=== PATIENT | female | born 1940 | race Caucasian/White ===

== ENCOUNTER 2018-01-06 09:55 | Inpatient (IN) | payer MEDICARE ==
[~2018-01-06] VITALS: Ht 165.1 cm; Wt 103.4 kg
--- NOTE | ~2018-01-06 | H ---
[address] [address] HISTORY AND PHYSICAL Name: YESENIA STOKES Room: [address]#: [id number] Admission: 01/07/18 Attend Phys: Parker Burt MD Discharge: 01/08/18 Date of : 40 Report #: [id number] THIS REPORT FOR: //name// For History and Physical please refer to the handwritten note in the patient's medical record. By: [facility] Staff J LUIS /OSBALDO
[2018-01-06 10:09] VITALS: BP 135/99
[2018-01-06] MEDS ORDERED: XANAX1 MG PO (10:19)
[2018-01-06] MEDS ORDERED: MELATONIN5 M1 PO (10:20)
[2018-01-06] MEDS ORDERED: TEMAZEPAM30 MG PO (10:20)
[2018-01-06] MEDS ORDERED: PROAIR HFA8.5 GM (12:13)
[2018-01-06] MEDS ORDERED: FLONASE 0.05%50 MCG NASAL (12:13)
[2018-01-06] MEDS ORDERED: SYMBICORT160 MCG/4. INH (12:13)
[2018-01-06] MEDS ORDERED: SYNTHROID88 MCG PO (12:14)
[2018-01-06] MEDS ORDERED: CLEOCIN HCL150 MG PO (12:14)
[2018-01-06] MEDS ORDERED: OMEPRAZOLE40 MG PO (12:14)
[2018-01-06] MEDS ORDERED: CYMBALTA30 MG PO (12:15)
[2018-01-06] MEDS ORDERED: ALL DAY ALLERGY10 M3 PO (12:15)
[2018-01-06] MEDS ORDERED: FIORINAL CAPSUL1 CA1 PO (12:16)
[2018-01-06] MEDS ORDERED: MAGOX 400400 MG PO (12:16)
[2018-01-06] MEDS ORDERED: UNICOMPLEX M TA1 TA1 PO (12:16)
[2018-01-06] MEDS ORDERED: VITAMIN B-1100 M1 PO (12:17)
[2018-01-06] MEDS ORDERED: VITAMIN D3400 UNIT PO (12:17)
[2018-01-06] MEDS ORDERED: CALCIUM 500 +1 EAC5 PO (12:17)
[2018-01-06 12:33] LABS: ABSOLUTE BASOPHILS 0.1 thou/uL (0.0-0.2); ABSOLUTE EOSINOPHILS 0.2 thou/uL (0.0-0.7); ABSOLUTE LYMPHOCYTES 1.5 thou/uL (0.8-5.3); ABSOLUTE MONOCYTES 0.6 thou/uL (0.0-1.2); ABSOLUTE NEUTROPHILS 4.3 thou/uL (1.6-8.1); BASOPHILS 1.4 %; EOSINOPHILS 3.2 %; HEMATOCRIT 41.8 % (37.0-47.0); LYMPHOCYTES 22.3 %; MCH 30.5 pg (26.0-34.0); MCHC 33.4 g/dL (28.0-37.0); MCV 91.4 fL (80.0-100.0); MONOCYTES 9.1 %; NUCLEATED RBCS 0 /100WBC; PLATELET COUNT* 317 thou/uL (150-400); RBC 4.57 mil/uL (4.20-5.00); RDW-CV 14.8 % (10.5-14.5); WBC 6.8 thou/uL (4.0-11.0)
[2018-01-06 12:41] LABS: CALCIUM 9.5 mg/dL (8.5-10.1); CREATININE 0.8 mg/dL (0.6-1.3); POTASSIUM 4.4 mmol/L (3.5-5.1)
[2018-01-06 12:45] LABS: ALBUMIN 3.2 g/dL (3.4-5.0); TOTAL BILIRUBIN 0.3 mg/dL (<0.1-1.0); TOTAL PROTEIN 7.1 g/dL (6.4-8.2)
[2018-01-06 12:48] VITALS: BP 128/66
--- NOTE | 2018-01-06 16:42 | EKG ---
[place] [address] ELECTROCARDIOGRAM REPORT Name: YESENIA STOKES Room: [facility]#: [id number] Admission: 01/06/18 Attend Phys: Discharge: 01/06/18 Date of : 40 Report #: [id number] THIS REPORT FOR: //name// [facility] ED Test Date: 2018-01-06 Test Time: 12:39:13 Pat Name: YESENIA STOKES Department: Room: Gender: F Building Surveyor: [place] : 1940 Requested By: Jaden Odonnell Order Number: [id number] MD: Myles Hills Measurements Intervals [place] Rate: 82 P: 32 RI: 151 QRS: -45 QRSD: 138 T: 4 QT: 394 QTc: 461 Interpretive Statements Sinus rhythm Right bundle branch block Inferior infarct, old No previous ECG available for comparison Electronically Signed On 01-06-2018 16:42:28 CDT by Myles Hills [email or web address] <ELECTRONICALLY SIGNED> By: Myles Hills MD, [facility] 01/06/18 1642 1239 1239 Myles Hills MD, FACC /EPI
[2018-01-06 18:15] VITALS: BP 133/80
--- NOTE | 2018-01-06 21:33 | NUR ---
PT ARRIVED UNEXPECTEDLY FROM PACU AT 1804. PT CAME INTO E.D. WITH BROKEN WRIST, WENT TO SURGERY AND WAS TO BE RELEASED HOME, BUT WAS INSTEAD BROUGHT TO [facility] FOR 23 HOUR WATCH WITH PLAN TO D/C HOME TOMORROW. PT SETTLED INTO ROOM, EDUCATED ON ROOM AND HOSPITAL. FOOD, WATER AND ROOM SET UP PROVIDED. BED IN LOW LOCKED POSITION, FALL PRECAUTIONS IN PLACE AND FALL RISKS SIGNED AND PLACED IN CHART. VSS ON RA. HOURLY ROUNDING COMPLETED. LCTAB, HRRR PER AUSCULTATION. LEFT WRIST WRAPPED/SPLINTED. PT DENIES PAIN AT SHIFT CHANGE. REPORT TO ANTENNA DESIGN ENGINEER FOR CONTINUED CARES. PT SMILING, TALKATIVE AND PLEASANT.
[2018-01-07 00:19] VITALS: BP 119/77
[2018-01-07 04:33] VITALS: BP 135/66
--- NOTE | 2018-01-07 05:03 | NUR ---
PATIENT ALERT AND ORIENTED X 4 THROUGHOUT THE SHIFT AND RESTING QUIETLY ON HOURLY ROUNDS. UP TO BR WITH ADEQUATE VOIDS POET-OP. DRESSING/SPLINT LEFT WRIST CLEAN AND DRY. LUE ELEVATED ON PILLOW WITH ICE PACK. MEDICATED FOR PAIN TO GOOD EFFECT. VITAL SIGNS STABLE. HAS TOLERATED DIET. PATIENT HAS VERBALIZED SOME CONCERN RETURNING HOME TO SELF CARE. MESSAGE TO CM. CONTINUE TO MONITOR.
[2018-01-07 09:05] VITALS: BP 122/62
--- NOTE | 2018-01-07 11:30 | NUR ---
ASSUMED CARES OF PT AT 0700. PT IN BED, BED IN LOW LOCKED POSITION. CALL BUTTON AND PERSONAL ITEMS IN PT REACH. FALL PRECAUTIONS IN PLACE, BED ALARM ACTIVE. PT A&O X4, COMPLIANT, COOPERATIVE, FRIENDLY, TALKATIVE. HRRR PER AUSCULTATION, LCTAB, VSS ON RA, AFEBRILE, PERRLA, SKIN INTACT. LEFT WRIST FRACTURE WRAPPED AND SPLINTED. PT USES SLING OCCASIONALLY NEEDED/WANTED. PAIN CONTROLLED WITH MEDS FOR LEFT WRIST FRACTURE. PT UP SBA TO BATHROOM. LEFT FOOT IV 22 GAUGE PATENT TO FLUSH/SALINE LOCKED. HR OCC. TACHYCARDIC, PT HR STAYS IN 90'S TO LOWER 100'S. HOURLY ROUNDING CONTINUES. WILL CONTINUE TO MONITOR PT PROGRESS, STATUS AND PAIN. MAY D/C HOME TOMORROW.
--- NOTE | 2018-01-07 12:00 | NUR ---
PT.UP IN CHAIR AFTER P.T. READY FOR LUNCH. HELPED HER UNWRAP ITEMS ON HER TRAY. SHE LIVES ALONE. SHE SAID HER KIDS NEVER COME SEE HER OR DO ANYTHING FOR HER. SHE IS INDEPENDENT. STILL DRIVES. SHE SAID HER FRIENDS WILL HELP HER. DISCUSSED HH. SAID SHE DIDN'T HAVE ANY MONEY TO PAY FOR HOME HEALTH. EXPLAINED MEDICARE PAYS FOR FOR HH. SHE WOULD BE AGREEABLE TO OT. SHE CHOSE [facility]. SHE USES A CANE EVERY ONCE IN AWHILE. DISCUSSED MEALS ON WHEELS. SHE SAID SHE COULD NOT AFFORD THEM. MEALS [employer] WHEELS WILL NOT EXPECT PT.TO PAY FOR MEAL IF SHE CANNOT AFFORD MEAL. SHE DECLINED. SHE HAS SOMEONE THAT CAN TAKE HER HOME AND STOP TO GET HER PRESCRIPTIONS FILLED. SHE WAS UNDER THE IMPRESSION SHE WAS NOT GOING HOME UNTIL TOMORROW. EXPLAINED SHE WAS AN OBSERVTION PT.AND I WOULD CHECK WITH NURSING. PT.SAID SHE WOULD LIKE A SLING FOR HER ARM.
[2018-01-07 15:11] VITALS: BP 148/73
[2018-01-07 16:24] VITALS: BP 148/73
--- NOTE | 2018-01-07 20:30 | NUR ---
BEDSIDE REPORT TO FAMILY READINESS SUPPORT ASSISTANT FOR CONTINUED CARES. ASSESSMENTS AND HOURLY ROUNDING COMPLETED. PT IN BED, FALL PRECAUTIONS REMAIN IN PLACE, CALL BUTTON IN PT REACH. PT LEFT WRIST FX PAIN DIFFICULT TO MANAGE, PT STATES THIS IS WORSE THAN HER SHOULDER SURGERY. PT TEARY, TRAMADOL NOT EFFECTIVE FOR RELIEF. PT CHANGED TO INPATIENT STATUS FOR PAIN CONTROL. ICE APPLIED, LEFT ARM RAISED ON PILLOWS. CAP REFILL <3 SEC. HAND WARM TO TOUCH.
[2018-01-07 21:30] VITALS: BP 170/84
[2018-01-08 00:37] VITALS: BP 151/77
--- NOTE | 2018-01-08 08:08 | NUR ---
ALERT AND ORIENTED X4. GIVEN IV MORPHINE (WHICH PATIENT STATED SHE HAD TAKEN BEFORE) BUT AFTER GIVING MORPHINE PATIENT STATED ABOVE HER IV SITE ON HER FOOT ITCHED. NO REDNESS,OR RASH NOTED AT SITE. NO C/O SOA. PATIENT PUT SCRATCHES ON LEG FROM ITCHING. LOTION APPLIED TO AREA AND PATIENT STATED IT FELT BETTER. PO PAIN MEDICATION GIVEN THE REST OF THE NIGHT AND HELPFUL. LEFT FINGERS PUFFY BUT ARE WARM AND HAVE GOOD CAPILLARY REFILL. LEFT ARM/HAND ELEVATED ON PILLOW. PATIENT REFUSED ICE WHEN OFFERED. SPLINT/CAST/MACKENZIE WRAP REMAINS INTACT ON LEFT ARM. CALL LIGHT WITHIN REACH.
--- NOTE | 2018-01-08 14:57 | NUR ---
CM SPOKE TO THE PATIENT TO DISCUSS DISCHARGE PLANNING NEEDS, AND ANY QUESTIONS OR CONCERNS THAT SHE MAY HAVE. PATIENT STATES THAT HER ONLY CONCERN IS IF SHE WILL HAVE HH AT D/C. CM INFORMED PATIENT THAT CM HAS SENT REFERRAL AND WILL SEND D/C ORDERS. [facility] WILL CONTACT THE PATIENT TO SET-UP VISIT. CM SPOKE TO DELILAH AT [facility] TO INFORM OF THE PATIENTS DISCHARGE AND FAXED THE PATIENTS D/C ORDERS. CM WILL REMAIN AVAILABLE TO ASSIST AND FOLLOW NEEDED.
[2018-01-08 15:02] VITALS: BP 148/73
[2018-01-08] MEDS ORDERED: TRAMADOL 50 MG50 MG PO (15:24)
[2018-01-08 15:31] VITALS: BP 148/73
[2018-01-08 16:40] VITALS: BP 148/73
--- NOTE | 2018-01-08 20:45 | NUR ---
I ASSUMED CARE OF THE PATIENT AT 0700. SHE IS ALERT AND ORIENTED X4, BUT SEEMS DEPRESSED. BED IS IN THE LOW LOCKED POSITION AND CALL LIGHT IS IN REACH. HOURLY ROUNDING WAS COMPLETED AND PATIENT NEEDS WERE MET. PAIN IS MANAGED WITH PRN MEDS. PATIENT IS VERY CONCERNED ABOUT THE COST OF EVERYTHING. CASE MANAGEMENT SET UP HOME HEALTH FOR DISCHARGE. DR ROSE DISCHARGED PATIENT TO HOME WITH SCRIPTS. SHE WAS TAKEN WITH A FRIEND TO GET MEDS ON THE WAY HOME.
--- NOTE | 2018-01-28 11:41 | OP ---
[address] [address] OPERATIVE REPORT Name: YESENIA STOKES Room: [address] IN [facility]#: [id number] Admission: 01/07/18 Attend Phys: Parker Burt MD Discharge: 01/08/18 Date of : 40 Report #: [id number] THIS REPORT FOR: //name// CC: Jaden Burt [facility] DATE OF SERVICE: 01/06/2018 PREOPERATIVE DIAGNOSIS: Comminuted displaced left distal radial fracture. POSTOPERATIVE DIAGNOSIS: Comminuted displaced left distal radial fracture. OPERATIVE PROCEDURE PERFORMED: Open reduction and internal fixation of fracture of the left distal radius. DESCRIPTION OF PROCEDURE: Under general anesthesia, the patient was placed onto the operating room table in the supine position. A routine prep and drape was performed of the left hand and arm. The procedure was performed under tourniquet ischemia. Bleeding was controlled throughout the procedure by electrocautery. The wound was irrigated every 20 minutes with bacitracin solution. Following the appropriate time-out procedure, a 3 inch skin incision was made over the volar aspect of the left distal radius. Incision was carried through the skin, subcutaneous tissue and fascia. The quadratus muscle was then incised at its insertion over the radial border. The fracture site was exposed. Periosteal elevator was used to elevate the soft tissues from about the fracture site. The fracture was reduced into an anatomic position. A smooth K-wire was passed across the fracture site, securing the fracture in an anatomic position. A compression plate with its component screws were then applied and inserted, securing the fracture in an anatomic position. The wound was irrigated and closed with 2-0 Vicryl for the muscular, fascial and subcutaneous layers. The skin was closed with 4-0 nylon sutures. A sterile dressing was applied. A splint was applied. The patient tolerated the procedure well and was returned to the recovery area in good condition. <ELECTRONICALLY SIGNED> By: Parker Burt MD 01/28/18 1141 1608 1710John Martin Burt MD /nt
--- NOTE | 2018-01-28 11:41 | D ---
[address] [address] DISCHARGE SUMMARY Name: DIVYAYESENIA Room: [address] IN ..#: [id number] Admission: 01/07/18 Attend Phys: Parker Burt MD Discharge: 01/08/18 Date of : 40 Report #: [id number] THIS REPORT FOR: //name// CC: Jaden Burt [facility] DATE OF SERVICE: 01/08/2018 DISCHARGE DIAGNOSES: 1. Displaced comminuted left distal radial fracture. 2. History of depression. OPERATIVE PROCEDURE PERFORMED: Open reduction and internal fixation of left distal radial fracture. Pertinent historical data and positive physical findings are recorded in the history and physical examination. LABORATORY DATA: Initial laboratory data was well within normal limits. HOSPITAL COURSE: She was admitted, appropriately worked up and taken to surgery, which she tolerated well postoperatively. She progressively improved. At the time of discharge, it was felt that she had achieved maximum benefit from acute hospitalization and she was discharged to be followed as an outpatient. <ELECTRONICALLY SIGNED> By: Parker Burt MD 01/28/18 1141 1442 1844Jodarby Burt MD /nt
== END 2018-01-08 16:45 | disposition home health service (06) | DRG 512 ==
LOC: M.ERS 09:55 → M.SUR 09:55 → M.ERS 12:49 → M.ORTHSURG 18:18
PROVIDERS: Physician Assistant; ADMIT Specialist
PROC: 0PSJ04Z Reposition Left Radius with Internal Fixation Device, Open Approach (ICD-10-PCS; principal; 2018-01-08)
DX: S52.502A Unspecified fracture of the lower end of left radius, initial encounter for closed fracture (principal); W18.39XA Other fall on same level, initial encounter; F32.9 Major depressive disorder, single episode, unspecified; Z79.899 Other long term (current) drug therapy; Z88.6 Allergy status to analgesic agent; Z88.8 Allergy status to other drugs, medicaments and biological substances; Y93.89 Activity, other specified; Y92.091 Bathroom in other non-institutional residence as the place of occurrence of the external cause; Y99.8 Other external cause status

== ENCOUNTER 2018-12-31 11:18 | Inpatient (IN) | payer MEDICARE ==
[~2018-12-31] VITALS: Ht 167.6 cm; Wt 96.6 kg
[~2018-12-31 11:18] MED LIST: ALL DAY ALLERGY10 M3 PO; CALCIUM 500 +1 EAC5 PO; CLEOCIN HCL150 MG PO; CYMBALTA30 MG PO; FIORINAL CAPSUL1 CA1 PO; FLONASE 0.05%50 MCG NASAL; MAGOX 400400 MG PO; MELATONIN5 M1 PO; OMEPRAZOLE40 MG PO; PROAIR HFA8.5 GM INH; SYMBICORT160 MCG/4. INH; SYNTHROID88 MCG PO; TEMAZEPAM30 MG PO; TRAMADOL 50 MG50 MG PO; UNICOMPLEX M TA1 TA1 PO; VITAMIN B-1100 M1 PO; VITAMIN D3400 UNIT PO; XANAX1 MG PO
[2018-12-31 11:27] VITALS: BP 191/92
[2018-12-31] MEDS ORDERED: ANORO ELLIPTA1 EACH INH (11:35)
[2018-12-31] MEDS ORDERED: PAXIL10 MG PO (11:36)
[2018-12-31] MEDS ORDERED: FOSAMAX 70 MG T70 MG PO (11:37)
[2018-12-31] MEDS ORDERED: CARAFATE 1 GM TA1 G1 PO (11:38)
[2018-12-31] MEDS ORDERED: BENTYL 20 MG TA20 M1 PO (11:38)
[2018-12-31 13:20] VITALS: BP 194/103
[2018-12-31 13:37] LABS: ANION GAP 7 mmol/L (7-16); BUN 6 mg/dL (7-18); CALCIUM 8.8 mg/dL (8.5-10.1); CHLORIDE 105 mmol/L (98-107); CO2 29 mmol/L (21-32); CREATININE 0.7 mg/dL (0.6-1.3); GLUCOSE 164 mg/dL (70-99); POTASSIUM 4.2 mmol/L (3.5-5.1); SODIUM 141 mmol/L (136-145); TROPONIN-I LEVEL <0.06 ng/mL (<0.06)
[2018-12-31 13:39] LABS: ALBUMIN 3.1 g/dL (3.4-5.0); ALKALINE PHOSPHATASE 75 U/L (46-116); SGOT 40 U/L (15-37); SGPT 44 U/L (30-65); TOTAL BILIRUBIN 0.3 mg/dL (<0.1-1.0); TOTAL PROTEIN 6.7 g/dL (6.4-8.2)
[2018-12-31 13:40] LABS: BE -0.7 mmol/L (-2 to +3); PCO2 46.9 mmHg (35.0-45.0)
[2018-12-31 13:43] LABS: PO2 129.6 mmHg (75.0-100.0)
[2018-12-31 15:37] LABS: INFLUENZA A ANTIGEN None Detected (None Detect); INFLUENZA B ANTIGEN None Detected (None Detect)
[2018-12-31 16:44] VITALS: BP 132/64
--- NOTE | 2018-12-31 17:36 | NUR ---
PT REMAINED ALERT AND ORIENTED. PT IS ON 2 LITERS O2. PT HAS NONPRODUCTIVE COUGH. BP ELEVATED. NORVASC GIVEN, BP DECREASED. NO PAIN OR N/V PRESENT. PT STAND BY TO BATHROOM. FALL RISK PRECAUTIONS IN PLACE. HOURLY ROUNDING COMPLETED. WILL CONTINUE TO MONITOR.
--- NOTE | 2019-01-01 03:37 | NUR ---
ASSUMED CARE OF PT AT 1900. PT IS ALERT AND ORIENTED. VSS. PERREJI. PT IS ON 2 LITERS O2 AND HOME CPAP. PT CONTINUE TO HAVE COUGH. PT IS GETTING CODEINE FOR COUGH. PT IS SLEEPING QUIETLY IN BED. RESPIRATIONS ARE EVEN AND NONLABORED. WILL CONTINUE TO MONITOR PT.
[2019-01-01 07:10] VITALS: BP 152/80
--- NOTE | 2019-01-01 15:04 | EKG ---
[place] [address] ELECTROCARDIOGRAM REPORT Name: YESENIA STOKES Room: [address] ADM IN ..#: [id number] Admission: 12/31/18 Attend Phys: Jamie Taylor MD Discharge: Date of : 40 Report #: [id number] THIS REPORT FOR: //name// [facility] ED Test Date: 2018-12-31 Test Time: 11:42:23 Pat Name: YESENIA STOKES Department: Room: [facility] Gender: F Gis Manager: [place] : 1940 Requested By: Brigitte Angel Order Number: [id number] MD: Bob Alonso Measurements Intervals [place] Rate: 94 P: 78 NH: 155 QRS: -47 QRSD: 120 T: 30 QT: 386 QTc: 483 Interpretive Statements Sinus rhythm IVCD, consider atypical RBBB Baseline wander in lead(s) V6 Compared to ECG 01/06/2018 12:39:13 no change Electronically Signed On 01-01-2019 15:04:38 CDT by Bob Alonso [email or web address] <ELECTRONICALLY SIGNED> By: Bob Alonso MD, [facility] 01/01/19 1504 1142 1142 Bob Alonso MD, [facility] /EPI
[2019-01-01 15:38] LABS: ABSOLUTE LYMPHOCYTES 0.8 thou/uL (0.8-5.3); ABSOLUTE MONOCYTES 0.6 thou/uL (0.0-1.2); ABSOLUTE NEUTROPHILS 6.1 thou/uL (1.6-8.1); BASOPHILS 0.6 %; HEMATOCRIT 36.3 % (37.0-47.0); HEMOGLOBIN 12.2 gm/dL (12.0-15.0); LYMPHOCYTES 10.2 %; MCH 32.2 pg (26.0-34.0); MCHC 33.6 g/dL (28.0-37.0); MCV 95.8 fL (80.0-100.0); MONOCYTES 7.8 %; MPV 7.6 fl. (7.2-11.1); NUCLEATED RBCS 0 /100WBC; POLYS 81.4 %; RBC 3.79 mil/uL (4.20-5.00); RDW-CV 14.4 % (10.5-14.5); WBC 7.4 thou/uL (4.0-11.0)
[2019-01-01 15:39] LABS: PLATELET COUNT* 221 thou/uL (150-400)
[2019-01-01 15:46] LABS: CALCIUM 8.8 mg/dL (8.5-10.1); CREATININE 1.2 mg/dL (0.6-1.3); POTASSIUM 3.9 mmol/L (3.5-5.1)
--- NOTE | 2019-01-01 16:36 | NUR ---
PT REMAINED ALERT AND ORIENTED. PT HAS ANXIETY OVER SHORTNESS OF AIR, WORRIED ABOUT HAVING CANCER, ETC.. PT WAS TOLD THERE IS NO SIGN OF CANCER PER DOCTORS FINDINGS AND WORK UP. ANXIETY MEDS GIVEN ORDERED. PT GIVEN IV BENDADRYL TO HELP WITH AIRWAYS. PT GIVEN CODEINE COUGH SYRUP TO HELP WITH COUGHING. PT HAS LABS, CTA, AND VENOUS US COMPELTED. AWAITING RESULTS. FALL RISK PRECAUTIONS IN PLACE. HOURLY ROUNDING COMPLETED. WILL CONTINUE TO MONITOR.
--- NOTE | 2019-01-01 18:25 | NUR ---
LACTIC ACID 7.3, PROVIDER NOTIFIED, LABS ORDERED AT THIS TIME. WILL CONTINUE TO MONITOR.
[2019-01-01 20:30] VITALS: BP 117/58
--- NOTE | 2019-01-02 05:36 | NUR ---
PT A&O X4. SAO2 94% 2L NC. PT GIVEN PRN TYLENOL/CODEINE FOR PAIN. RELIEF NOTED ON REASSESSMENT, PT ASLEEP. MEDS GIVEN SCHEDULED. LAB CALLED IN LACTIC ACID CRITICAL VALUE OF 4.6 WHICH WAS A DECREASE FROM 7.4. DR SANCHEZ NOTIFIED VIA ANUSHKA VANN. NO NEW ORDERS GIVEN. BED IN LOW POSITION, BED ALRM ACTIVATED, CALL LIGHT WITHIN REACH. WILL CONTINUE TO MONITOR.
[2019-01-02 08:00] VITALS: BP 141/58
--- NOTE | 2019-01-02 13:59 | NUR ---
SW met with pt to complete initial assessment, introduce self, and SW role. Pt alert, oriented. Pt lives at home alone. Pt son is supportive. Pt has history of [facility] HH and history of [facility] after shoulder and knee surgeries. SW to continue to follow to assist with safe dc planning.
--- NOTE | 2019-01-02 14:14 | CON ---
[address] [address] CONSULTATION Name: YESENIA STOKES Room: [address] IN .R.#: [id number] Admission: 12/31/18 Attend Phys: Jamie Taylor MD Discharge: Date of : 40 Report #: [id number] THIS REPORT FOR: //name// CC: Jamie Taylor [facility] DATE OF SERVICE: 01/01/2019 REQUESTED BY: Dr. Manuel. INDICATION FOR CONSULTATION: Acute shortness of breath/stridor. HISTORY OF PRESENT ILLNESS: This is a 78-year-old female with past medical history as mentioned below. The patient is a lifetime nonsmoker. She has been recently diagnosed with bronchial asthma a few months ago. The patient does have significant anxiety issues as well as sleep issues. She takes a fairly large amount of medications to help her sleep at night, which include temazepam at 30 mg, in addition to 1 mg of Xanax at bedtime. The patient does use a CPAP at night. She also does have a history of severe gastroesophageal reflux disease and is on proton pump inhibitor and Carafate therapy long-term. The patient is now admitted yesterday, presentation was with acute shortness of breath. The patient is reported to have had a severe upper airway wheezing as well as bronchospasm on initial presentation. The patient since then has been treated with IV steroids as well as bronchodilators The patient overall is feeling better. She has not received racemic epinephrine. The patient has had a significantly elevated lactate level. The patient's last lactate in fact is elevated to 7.3. Note, however, that the patient's last BUN and creatinine were not elevated, in fact were on the lower side. The patient has had a mild swelling of lower extremities. She still has significant heartburn. She has disturbed sleep at night as well as sleepiness during the day. She answers to the negative for 12 questions for review of systems except as mentioned above. PAST MEDICAL HISTORY: Bronchial asthma, severe gastroesophageal reflux disease. Obstructive sleep apnea, on a CPAP at home. Severe insomnia with anxiety, shoulder replacement, knee replacement, recent dental work, gallbladder removal, bowel obstruction, diabetes. CURRENT MEDICATIONS: List in [facility] reviewed. HOME MEDICATIONS: List also in [facility] reviewed. SOCIAL HISTORY: Lifetime nonsmoker. No known history of heavy alcohol use or illegal drug use. ALLERGIES: SHE IS REPORTED TO HAVE HAD ANAPHYLAXIS WITH [place] [address] CONSULTATION Name: YESENIA STOKES Room: [address]#: [id number] Admission: 12/31/18 Attend Phys: Jamie Taylor MD Discharge: Date of : 40 Report #: [id number] had hallucinations with opiates. This, however, appears to be a side effect and not true allergies. CYCLOBENZAPRINE IS ALSO MENTIONED AN ALLERGY. PHYSICAL EXAMINATION: GENERAL: She is alert, awake and oriented, does not appear to be in any distress at this time. VITAL SIGNS: Has a pulse of 109 and a blood pressure of 152/80. She is saturating 96%. She is on 2 liters nasal cannula. She has a respiratory rate of around 20. She does appear to be anxious. She is afebrile with a temperature of 36.8. HEENT: Head is normocephalic and atraumatic. Pupils are equal and reactive. There is no throat erythema. Airway is Mallampati 3. NECK: Does not show raised JVP, asymmetry, mass or lymph nodes. CHEST: Symmetrical expansion on inspection and palpation. On auscultation, breath sounds are bilaterally equal. Minimal expiratory wheezes. I do not hear any other added sounds at this time. The patient does not have stridor or upper airway wheezing. HEART: Regular, no murmur. ABDOMEN: Soft, nontender. EXTREMITIES: Lower extremities show trace edema, no calf tenderness. SKIN: Dry and intact. NEUROLOGICAL: Moves all extremities bilaterally, equally and spontaneously with no focal deficit identified. The patient's chest x-ray from yesterday is reviewed and is unremarkable. ASSESSMENT AND PLAN: 1. Acute hypoxemic/hypercarbic respiratory failure. I feel that this is multifactorial. As per history, reported to have had significant bronchospasm as well as upper airway wheezing on initial presentation. There does appear to be a significant underlying component of anxiety as well. The patient has significant underlying reflux, which also does appear to be playing a significant role. 2. Asthma exacerbation/bronchospasm. The patient remains on nebulized bronchodilators as well as Solu-Medrol. I will continue the same and make no change at this time. The patient does have a history of diabetes and has developed significant elevation in blood glucoses as a result of administration of Solu-Medrol, may therefore require more insulin. I would defer to the Primary Service. The patient currently is on both azithromycin as well as Levaquin. Pending further evaluation, I decided to discontinue azithromycin. 3. Upper airway wheezing/stridor. This is reported on initial presentation, not present on my exam at this time. I feel this is multifactorial again. Underlying reflux appears to be contributing, as does anxiety. Primary therapy at this time is that of the underlying cause. Administration of positive airway pressure therapy will also reduce upper airway wheezing should it reoccur. The [place] [address] CONSULTATION Name: YESENIA STOKES Shad Room: [address] IN [facility].#: [id number] Admission: 12/31/18 Attend Phys: Jamie Taylor MD Discharge: Date of : 40 Report #: [id number] 4. Obstructive sleep apnea. She has a CPAP. Recommend continuing while asleep. If she develops upper airway wheezing, then I will place her on a CPAP or BiPAP during the daytime as well. 5. Gastroesophageal reflux disease. I will recommend restarting proton pump inhibitor therapy, and I ordered the same. We will also continue with Carafate. There was concern as to whether the patient may have had an allergic reaction, and therefore, the patient also is on famotidine. At this time, I continued famotidine as well. However, if the patient is better, then I would be inclined to discontinue famotidine tomorrow. We will continue with PPI as well as Carafate long-term. 6. Anxiety. I feel this is playing a significant role in the patient's complaints. She is on a large dose of temazepam as well as Xanax at bedtime. For now, I did add a small dose of Xanax during the daytime, short-term as well. She has p.r.n. Ativan on the DEC as well. The patient may benefit from psychiatric evaluation. 7. Evaluation for thromboembolic phenomena. Overall, my suspicion is low. Regardless, I will go ahead and do a D-dimer as well as venous Dopplers. I also ordered an echocardiogram. For now, I am inclined to hold off on a CTA chest. 8. Lactic acidosis. I feel that this is secondary to respiratory failure and not due to volume depletion. I will go ahead and repeat basic metabolic profile at this time. If the patient's BUN and creatinine are within the normal range, then I will be inclined to not bolus her with additional amounts of fluid as this may in fact worsen her respiratory status. The patient remains on IV fluids at 50 mL an hour. 9. Deep vein thrombosis prophylaxis. She is on Lovenox. 10. Clostridium difficile prophylaxis, we will add Florastor. Thanks for this consultation. <ELECTRONICALLY SIGNED> By: Pedro Elias MD 01/02/19 1414 1454 1059Adarleen Dias MD /nt
--- NOTE | 2019-01-02 15:40 | 2DMMODE ---
[place] [address] 2 D/M-MODE ECHOCARDIOGRAM Name: YESENIA STOKES Room: [facility] IN [facility]#: [id number] Admission: 12/31/18 Attend Phys: Jamie Taylor, Discharge: Date of : 40 Date of Service: 01/02/19 1539 Report #: [id number] THIS REPORT FOR: //name// APPROVED REPORT Study performed: 01/02/2019 11:59:04 EXAM: Comprehensive 2D, Doppler, and color-flow Echocardiogram Patient Location: In-Patient Room #: [facility] Status: routine BSA: 2.05 HR: 112 bpm BP: 141/58 mmHg Rhythm: NSR Other Information Study Quality: Good Indications Dyspnea 2D Dimensions IVSd: 10.45 (7-11mm) LVOT Diam: 19.00 (18-24mm) LVDd: 49.24 mm PWd: 8.82 (7-11mm) Ascending Ao: 32.41 (22-36mm) LVDs: 28.21 (25-40mm) Aortic Root: 32.73 mm Volumes Left Atrial Volume (Systole) LA ESV Index: 19.00 mL/m2 Aortic Valve AoV Peak Mo.: 1.78 m/s AO Peak Gr.: 12.74 mmHg LVOT Max P.87 mmHg AO Mean Gr.: 6.98 mmHg LVOT Mean P.63 mmHg LVOT Max V: 1.57 m/s AO V2 VTI: 30.79 cm LVOT Mean V: 0.99 m/s YULI (VTI): 2.48 cm2 LVOT V1 VTI: 26.98 cm Mitral Valve E/A Ratio: 0.90 MV Decel. Time: 178.96 ms MV E Max Mo.: 1.28 m/[place] [address] 2 D/M-MODE ECHOCARDIOGRAM Name: YESENIA STOKES Room: [address] [place] .R.#: [id number] Admission: 12/31/18 Attend Phys: Jamie Taylor, Discharge: Date of : 40 Date of Service: 01/02/19 1539 Report #: [id number] MV PHT: 51.90 ms MVA (PHT): 4.24 cm2 TDI E/Lateral E': 9.14 Lateral E' Mo.: 0.14 m/s Pulmonary Valve PV Peak Mo.: 1.38 m/s PV Peak Gr.: 7.58 mmHg Tricuspid Valve RAP Estimate: 5.00 mmHg TR Peak Gr.: 29.71 mmHg RVSP: 34.00 mmHg PA Pressure: 34.00 mmHg Left Ventricle The left ventricle is normal size. There is normal LV segmental wall motion. There is normal left ventricular wall thickness. Left ventricular systolic function is normal. The left ventricular ejection fraction is within the normal range. LVEF is 65-70%. Grade I - abnormal relaxation pattern. Right Ventricle The right ventricle is normal size. The right ventricular systolic function is normal. Atria The left atrium size is normal. The right atrium size is normal. Aortic Valve The aortic valve is normal in structure. No aortic regurgitation is present. There is no aortic valvular stenosis. Mitral Valve The mitral valve is normal in structure. Trace mitral regurgitation. No evidence of mitral valve stenosis. Tricuspid Valve The tricuspid valve is normal in structure. Trace tricuspid regurgitation. Mild pulmonary hypertension. Pulmonic Valve The pulmonary valve is normal in structure. There is no pulmonic [place] [address] 2 D/M-MODE ECHOCARDIOGRAM Name: YESENIA STOKES Room: [address] IN [facility]#: [id number] Admission: 12/31/18 Attend Phys: Jamie Taylor, Discharge: Date of : 40 Date of Service: 01/02/19 1539 Report #: [id number] Great Vessels The aortic root is normal in size. IVC is normal in size and collapses >50% with inspiration. Pericardium There is no pericardial effusion. <Conclusion> The left ventricle is normal size. There is normal left ventricular wall thickness. Left ventricular systolic function is normal. The left ventricular ejection fraction is within the normal range. LVEF is 65-70%. Grade I - abnormal relaxation pattern. The right ventricle is normal size. The left atrium size is normal. The aortic valve is normal in structure. The mitral valve is normal in structure. The tricuspid valve is normal in structure. IVC is normal in size and collapses >50% with inspiration. There is no pericardial effusion. There is normal LV segmental wall motion. <ELECTRONICALLY SIGNED> By: Praker Rudd MD, FACC 01/02/19 1539 1539 1539 Parker Rudd MD, FACC /INF
[2019-01-02 16:48] VITALS: BP 123/69
--- NOTE | 2019-01-02 16:52 | NUR ---
PATIENT UP TO CHAIR MULTIPLE TIMES THIS SHIFT. VIDEO SWALLOW ORDERED BY PULMONARY THIS AFTERNOON, AWAITING TO BE DONE. IV LEAKING THIS AM AND INFUSION PLACED ANOTHER IV TO LEFT FOREARM, IV AND SCHED STEROIDS GIVEN. PRN COUGH SYRUP AND PRN TYLENOL GIVEN ORDERED. REMAISN ON 2L NC. UP TO SHOWER THIS AM, PATIENT DID C/O SOA AFTER SHOWER, 02 SAT 94% RA.
[2019-01-02 21:00] VITALS: BP 127/70
--- NOTE | 2019-01-03 04:57 | NUR ---
PT ALERT AND ORIENTED. PREFERS TO TAKE PO MEDS RIGHT AT BEDTIME, SLEPT THROUGH THE NIGHT. VITAL SIGNS STABLE THROUGH SHIFT, ON 2L NC. PT STANDBY ASSIST, CALLS OUT APPROPRIATELY. CALL LIGHT WITHIN REACH. BED IN LOW POSITION. FALL RISK PRECAUTION IN PLACE. WILL CONTINUR TO MONITOR.
[2019-01-03 08:30] VITALS: BP 143/78
--- NOTE | 2019-01-03 10:35 | CON ---
[address] [address] CONSULTATION Name: YESENIA STOKES Room: [address] IN .R.#: [id number] Admission: 12/31/18 Attend Phys: Jamie Taylor MD Discharge: Date of : 40 Report #: [id number] THIS REPORT FOR: //name// CC: Jamie Haley NEPHROLOGY CONSULTATION CONSULTING PHYSICIAN: Dr. Taylor REASON FOR CONSULTATION: Elevated creatinine and lactic acid. HISTORY OF PRESENT ILLNESS: A 78-year-old female admitted with a severe asthma exacerbation, has been coughing and short of breath, being followed by Pulmonology at the present time, had an elevated lactic acid up to 7 and a creatinine of 1.2 yesterday. Her intake had been diminished due to the recent respiratory symptoms. She presently is coughing, but otherwise appears to be fairly comfortable. REVIEW OF SYSTEMS: Constitutional, psych, heme, eyes, ENT, respiratory, cardiac, GI, , endocrine, all negative except as documented above. PAST MEDICAL AND SURGICAL HISTORY: Asthma, history of knee and shoulder replacement, history of diabetes. SOCIAL HISTORY: No tobacco. FAMILY HISTORY: Not pertinent in this 78-year-old female. CURRENT MEDICATIONS: Reviewed. PHYSICAL EXAMINATION: VITAL SIGNS: Blood pressure 141/58, pulse 103, temperature 36.5, respirations 20. GENERAL: In no acute distress. EYES: Open. EARS: Externally normal. CARDIOVASCULAR: Regular rate. LUNGS: Decreased breath sounds. ABDOMEN: Soft. MUSCULOSKELETAL: Nontender. PSYCHIATRIC: Awake, alert. LABORATORY DATA: White cell count 8.8, hemoglobin 12.2, platelets 200. Sodium 140, potassium 4.4, chloride 107, bicarbonate 21, BUN 15, creatinine 0.8, glucose 258, calcium 8.3. [place] [address] CONSULTATION Name: YESENIA STOKES Room: [address] IN [facility]#: [id number] Admission: 12/31/18 Attend Phys: Jamie Taylor MD Discharge: Date of : 40 Report #: [id number] ASSESSMENT: 1. Acute kidney injury with a creatinine up to 1.2 on January 01 down to 0.8 on January 02 in the setting of volume depletion. 2. Lactic acidosis with an elevated lactic acid up to 7.3 in the setting of severe asthma exacerbation, but his serum bicarbonate was 21. An arterial blood gas was 7.39, 35 and 20.4. PLAN: The patient has stable renal function. Lactic acid is trending down. Asthma exacerbation and is being managed currently on IV fluids. No other recommendations. I will sign off. Please call with any questions. Thank you for requesting my opinion in the care and management of this patient. <ELECTRONICALLY SIGNED> By: Henok Barron MD 01/03/19 1035 1228 [id number] Ursula Barron MD /varinder
[2019-01-03 11:30] VITALS: BP 140/71
--- NOTE | 2019-01-03 14:05 | NUR ---
SW met with pt to discuss safe dc planning and recommendation of doctor for pt to dc to SNF for a while at dc possibly dc tomorrow. Pt said that she would prefer [facility] and later told the nurse that was her only preference as well. DC operations planner to fax referral to [facility]; SW to continue to follow to assist with safe dc planning and SNF placement.
--- NOTE | 2019-01-03 14:45 | NUR ---
WARPMAN INFORMED BY ENGINEER OF THE PATIENT'S DECISION TO GO TO [facility] SKILLED AT D/C, AND NEED TO FAX SKILLED REFERRAL. D/C MOTORBOAT MECHANIC FAXED PATIENT'S FACESHEET, AND CLINCIAL INFO. PT/OT NOTES NOT AVIALABLE AT THIS TIME. D/C MOTORBOAT MECHANIC INFORMED THE RN IN-CHARGE OF THE PATIENT OF THE NEED TO ORDER PT/OT FOR THE PATIENT. CM WILL REMAIN AVIALABLE TO ASSIST AND FOLLOW NEEDED.
--- NOTE | 2019-01-03 17:18 | NUR ---
PATIENT UP IN CHAIR ALL SHIFT, UP WITH ASSIST TO BATHROOM UTILIZING WALKER. PATIENT STATED IV TO LEFT FA WAS BURNING. INFUSION PLACED NEW IV TO RIGHT FA. RIGHT FA IV DIFFICULT TO FLUSH, AND PATIENT C/O PAIN IN SITE. OK PER DR. MILES TO SC IV SITES. IV MEDICATIONS CHANGED TO PO. INSULIN WITH MEALS WHEN REQUIRED. ST BEDSIDE EVAL, WILL PERFORM VIDEO SWALLOW TOMORROW. PRN COUGH SYRUP GIVEN X 2 THIS SHIFT.
[2019-01-03 17:25] VITALS: BP 130/76
[2019-01-04] VITALS: BP 128/71
[2019-01-04 04:14] LABS: ABSOLUTE LYMPHOCYTES 1.1 thou/uL (0.8-5.3); ABSOLUTE MONOCYTES 0.8 thou/uL (0.0-1.2); BASOPHILS 0.3 %; EOSINOPHILS 0.1 %; HEMATOCRIT 38.4 % (37.0-47.0); HEMOGLOBIN 12.6 gm/dL (12.0-15.0); LYMPHOCYTES 16.4 %; MCH 31.3 pg (26.0-34.0); MCHC 32.8 g/dL (28.0-37.0); MCV 95.5 fL (80.0-100.0); MONOCYTES 11.4 %; MPV 7.8 fl. (7.2-11.1); NUCLEATED RBCS 0 /100WBC; PLATELET COUNT* 235 thou/uL (150-400); POLYS 71.8 %; RBC 4.02 mil/uL (4.20-5.00); RDW-CV 14.5 % (10.5-14.5); WBC 6.9 thou/uL (4.0-11.0)
[2019-01-04 04:31] LABS: CALCIUM 8.6 mg/dL (8.5-10.1); CREATININE 0.8 mg/dL (0.6-1.3)
--- NOTE | 2019-01-04 06:49 | NUR ---
PATIENT SLEPT MOST OF THE NIGHT. PATIENT HAD A PRODUCTIVE LOOSE COUGH AND WAS COUGHING UP GREEN SPUTUM. PATIENT HAD NO OTHER COMPLAINTS. PATIENT IS TO HAVE A VIDEO SWALLOW STUDY TODAY. WILL CONTINUE TO MONITOR.
[2019-01-04 08:16] VITALS: BP 142/69
[2019-01-04 16:12] VITALS: BP 153/56
--- NOTE | 2019-01-04 16:46 | NUR ---
PT CARE ASSUMED AFTER REPORT. ASSESSMENT COMPLETE. PT SEEN BY OT/PT FOR EVALS TODAY. PT UP WITH WALKER AND ASSIST X1. DENIES PAIN. PROGRESSING TOWARDS GOALS.
--- NOTE | 2019-01-04 17:07 | NUR ---
LUIS ALBERTO spoke with Teresa about pt possibility to dc to [facility] at dc. Admissions at [facility] just needing to clarify oxygen and/or Bipap or Cpap if needed. When pt clear to dc, plan for dc to [facility] SNF if needed. [facility] ph [phone] fax [phone]
[2019-01-04 19:45] VITALS: BP 138/80
--- NOTE | 2019-01-05 04:37 | NUR ---
RESTED WELL THROGUHOUT HOURLY ROUNDS UP TO BATHROOM WITH SB ASSIST DRY COUGH REMAINS, ABLE TO DRINK AND TAKE PILLS WITHOUT DIFFICUTY.WILL CONITNUE WITH CURRENT PLAN OF CARE AND ALTON REPOERT CHANGES , TOLERATING RESP TREATMENT ROOM SAT 98 %
[2019-01-05 07:30] VITALS: BP 144/75
[2019-01-05 12:21] VITALS: BP 144/75
[2019-01-05] MEDS ORDERED: DUONEB INH (12:54)
[2019-01-05] MEDS ORDERED: FLONASE 0.05%50 MCG NASAL (12:55)
[2019-01-05] MEDS ORDERED: HUMALOG100 UNIT/1 SUBQ (12:57)
[2019-01-05] MEDS ORDERED: PROTONIX40 M2 PO (12:58)
[2019-01-05] MEDS ORDERED: TYLENOL EXTRA500 MG PO (12:59)
--- NOTE | 2019-01-05 13:54 | NUR ---
LUIS ALBERTO followed up with [facility] about pt possible dc today and SW received dc orders. SW also clarified that pt has her own CPAP that she can take to [facility]. Viola with [facility] admissions spoke with LUIS ALBERTO and confirmed that they will accept pt but as it turns out, they did not have a bed available today due to a pt who was schedule to dc did not dc. [facility] can accept tomorrow and scheduled a ride for 2:30 pm. LUIS ALBERTO informed pt and she was pleased with the plan and LUIS ALBERTO called and informed pt son Jeet and pt dtr Patria at pt request. [facility] [phone] fax [phone]
--- NOTE | 2019-01-05 16:23 | NUR ---
PATIENT UP IN CHAIR ALL SHIFT. COUGH SYRUP GIVEN X 1 THIS SHIFT. REMAINS WITH NO IV ACCESS. UP WITH SBA UTILIZING WALKER. PATIENT ACCEPTED TO [facility], WILL DISCHARGE TOMORROW. DR. OMALLEY AWARE.
[2019-01-05 17:41] VITALS: BP 134/69
[2019-01-05 20:40] VITALS: BP 121/62
--- NOTE | 2019-01-06 05:18 | NUR ---
PT A&O. VS STABLE ON RA. PT ON CPAP WHEN SLEEPING. NO IV ACCESS. MEDS GIVEN SCHLED. PRN CODEINE GIVEN X1 FOR COUGH, RELIEF NOTED. PT CALLS OUT APPROPRIATELY. CALL LIGHT WITHIN REACH. FALL PRECAUTION IN PLACE. WILL CONTINUE TO MONITOR.
[2019-01-06 08:00] VITALS: BP 126/69
[2019-01-06 09:07] VITALS: BP 126/69
--- NOTE | 2019-01-06 14:40 | NUR ---
DISCHARGE NOTE - REPORT GIVEN TO GABI MANZO AT [facility]. ALL BELONGINGS SENT WITH PT. HOME CPAP/TRILOGY WAS GIVEN TO TRANSPORTER. CHART COPIED AND SENT.
== END 2019-01-06 14:40 | DRG 189 ==
LOC: M.ERS 11:18 → M.TBA-ER 12:35 → M.3W 12:35
PROVIDERS: Internal Medicine; Internal Medicine Critical Care Medicine; Physician Assistant
PROC: 5A09357 Assistance with Respiratory Ventilation, Less than 24 Consecutive Hours, Continuous Positive Airway Pressure (ICD-10-PCS; principal; 2019-01-04)
DX: J96.01 Acute respiratory failure with hypoxia (principal); R65.11 Systemic inflammatory response syndrome (SIRS) of non-infectious origin with acute organ dysfunction; J45.51 Severe persistent asthma with (acute) exacerbation; I74.9 Embolism and thrombosis of unspecified artery; E87.2 Acidosis; J96.02 Acute respiratory failure with hypercapnia; F41.9 Anxiety disorder, unspecified; K21.9 Gastro-esophageal reflux disease without esophagitis; G47.33 Obstructive sleep apnea (adult) (pediatric); G47.00 Insomnia, unspecified; Z96.619 Presence of unspecified artificial shoulder joint; E11.9 Type 2 diabetes mellitus without complications; Z96.653 Presence of artificial knee joint, bilateral; E66.9 Obesity, unspecified; R13.10 Dysphagia, unspecified; J40 Bronchitis, not specified as acute or chronic; Z90.49 Acquired absence of other specified parts of digestive tract; Z88.6 Allergy status to analgesic agent; Z88.0 Allergy status to penicillin; Z88.8 Allergy status to other drugs, medicaments and biological substances; Z68.34 Body mass index [BMI] 34.0-34.9, adult

== ENCOUNTER 2020-02-11 18:42 | Emergency (ER) | payer MEDICARE ==
[~2020-02-11] VITALS: Ht 170.2 cm; Wt 99.8 kg
[~2020-02-11 18:42] MED LIST changes: +ANORO ELLIPTA1 EACH INH; +BENTYL 20 MG TA20 M1 PO; +CARAFATE 1 GM TA1 G1 PO; +DUONEB INH; +FOSAMAX 70 MG T70 MG PO; +HUMALOG100 UNIT/1 SUBQ; +PAXIL10 MG PO; +PROTONIX40 M2 PO; +TYLENOL EXTRA500 MG PO
[2020-02-11] MEDS ORDERED: LIPITOR 20 MG T20 M1 PO (19:02)
[2020-02-11] MEDS ORDERED: ARIPIPRAZOL1 MG/1 ML PO (19:02)
[2020-02-11] MEDS ORDERED: SEREVENT DISKU50 MCG INH (19:03)
[2020-02-11] MEDS ORDERED: B12 ACTIVE1000 MCG PO (19:03)
[2020-02-11] MEDS ORDERED: GLIPIZIDE 10 MG10 MG PO (19:04)
[2020-02-11] MEDS ORDERED: KEFLEX500 M1 PO (20:02)
[2020-02-11 20:40] VITALS: BP 124/76
== END 2020-02-11 20:40 | disposition home or self-care (01) ==
LOC: M.ERS 18:42
DX: S01.81XA Laceration without foreign body of other part of head, initial encounter (principal); J45.909 Unspecified asthma, uncomplicated; E11.9 Type 2 diabetes mellitus without complications; Z88.0 Allergy status to penicillin; Z88.6 Allergy status to analgesic agent; Z88.5 Allergy status to narcotic agent; Z96.653 Presence of artificial knee joint, bilateral; Z90.710 Acquired absence of both cervix and uterus; W22.8XXA Striking against or struck by other objects, initial encounter; Y93.89 Activity, other specified; Y92.89 Other specified places as the place of occurrence of the external cause; Y99.8 Other external cause status

== ENCOUNTER 2021-07-01 02:59 | Inpatient (IN) | payer MEDICARE ==
[~2021-07-01] VITALS: Ht 167.6 cm; Wt 90.7 kg
--- NOTE | ~2021-07-01 | CON ---
[address] [address] CONSULTATION Name: YESENIA STOKES Room: [address] IN .R.#: [id number] Admission: 07/01/21 Attend Phys: Kaci Alfaro Discharge: Date of : 40 Report #: [id number] THIS REPORT FOR: cc: [place] - No family physician/PCP D[place] - No family physician/PCP Berry Douglas MD ~ DATE OF CONSULTATION: 07/03/2021 REASON FOR CONSULTATION: Dysphagia and abdominal pain. REQUESTING PHYSICIAN: Dr. Brandon hBat. HISTORY OF PRESENT ILLNESS: This is an 81-year-old female who reports that she had severe diarrhea and abdominal pain which started few days ago. This prompted her to come to the hospital. Since hospitalization, her diarrhea has resolved, but she continued to have abdominal pain. She also had some dysphagia type symptoms for which we were consulted. The patient denies any hematochezia, melena. She has had gallbladder disease and has had her gallbladder removed in the past. PAST MEDICAL HISTORY: Significant for history of dyslipidemia, hypothyroidism, diabetes mellitus, asthma, osteoporosis, depression, anxiety, shoulder surgery, bilateral knee replacement, gallbladder disease, status post cholecystectomy, history of bowel obstruction, spinal stenosis. ALLERGIES: SIGNIFICANT TO PENICILLIN, OPIOID, CYCLOBENZAPRINE. MEDICATIONS: Please refer to MAR. SOCIAL HISTORY: The patient lives at home. She denies tobacco or alcohol use. FAMILY HISTORY: Noncontributory. PHYSICAL EXAMINATION: GENERAL: Reveals normal vitals. LUNGS: Clear. CARDIOVASCULAR: Regular. ABDOMEN: Soft, tender to palpation in the epigastric region. Bowel sounds are present. LABORATORY DATA: Revealed sodium of 133, potassium 3.5, BUN is 7, creatinine is 0.7, glucose 185, AST is 26, ALT 0.3, alkaline phosphatase 71, ALT 25, albumin is 3.2. INR is 1.1. WBC 7.5 with hemoglobin of 13.1 and platelets of 353. [place] [address] CONSULTATION Name: YESENIA STOKES Room: [address] IN [facility].#: [id number] Admission: 07/01/21 Attend Phys: Kaci Alfaro Discharge: Date of : 40 Report #: [id number] IMAGING: CT of abdomen and pelvis was obtained which revealed distended bladder and mild dilatation of the intra and extrahepatic ducts. The CT was otherwise normal. ASSESSMENT AND PLAN: The patient with epigastric pain, dysphagia, who has mild dilation of the intrahepatic and extrahepatic duct and previous history of gallbladder surgery with normal liver function tests. We will proceed with performing upper endoscopy to further evaluate her dysphagia and epigastric pain. We will make further recommendation once upper endoscopy is complete. In reference to her diarrhea since this has resolved for the past couple days, we will continue monitoring it and if diarrhea persists, we will work it up. By: [id number] [id number] oDuglas MD /varinder
[~2021-07-01 02:59] MED LIST changes: +ARIPIPRAZOL1 MG/1 ML PO; +B12 ACTIVE1000 MCG PO; +GLIPIZIDE 10 MG10 MG PO; +KEFLEX500 M1 PO; +LIPITOR 20 MG T20 M1 PO; +SEREVENT DISKU50 MCG INH; +TEMAZEPAM15 MG PO; -TEMAZEPAM30 MG PO
[2021-07-01 03:00] VITALS: BP 144/73
[2021-07-01] MEDS ORDERED: SERTRALINE HCL100 MG PO (03:08)
[2021-07-01] MEDS ORDERED: VITAMIN C500 M2 PO (03:08)
[2021-07-01] MEDS ORDERED: MELATONIN5 MG SUBLING (03:09)
[2021-07-01] MEDS ORDERED: PRESERVISION A1 EAC2 PO (03:09)
[2021-07-01] MEDS ORDERED: ONDANSETRON ODT4 MG PO (03:10)
[2021-07-01 04:46] LABS: ABSOLUTE BASOPHILS 0.1 thou/uL (0.0-0.2); ABSOLUTE EOSINOPHILS 0.2 thou/uL (0.0-0.7); ABSOLUTE LYMPHOCYTES 1.5 thou/uL (0.8-5.3); ABSOLUTE MONOCYTES 0.7 thou/uL (0.0-1.2); BASOPHILS 0.9 %; EOSINOPHILS 2.8 %; HEMATOCRIT 38.3 % (37.0-47.0); HEMOGLOBIN 13.1 gm/dL (12.0-15.0); LYMPHOCYTES 20.3 %; MCH 31.3 pg (26.0-34.0); MCHC 34.3 g/dL (28.0-37.0); MCV 91.1 fL (80.0-100.0); MONOCYTES 9.6 %; MPV 6.4 fl. (7.2-11.1); NUCLEATED RBCS 0 /100WBC; PLATELET COUNT* 353 thou/uL (150-400); POLYS 66.4 %; RDW-CV 14.1 % (10.5-14.5); WBC 7.5 thou/uL (4.0-11.0)
[2021-07-01 04:52] LABS: CALCIUM 8.7 mg/dL (8.5-10.1); CREATININE 0.7 mg/dL (0.6-1.3); POTASSIUM 3.3 mmol/L (3.5-5.1)
[2021-07-01 04:53] LABS: PCO2 35.5 mmHg (35.0-45.0); PO2 81.4 mmHg (75.0-100.0); pH 7.425 (7.340-7.450)
[2021-07-01 04:57] LABS: ALBUMIN 3.2 g/dL (3.4-5.0); MAGNESIUM 1.8 mg/dL (1.8-2.4); TOTAL BILIRUBIN 0.3 mg/dL (<0.1-1.0); TOTAL PROTEIN 6.6 g/dL (6.4-8.2)
[2021-07-01 07:19] LABS: URINE BILIRUBIN NEGATIVE (Negative); URINE BLOOD TRACE (Negative); URINE CLARITY CLEAR; URINE COLOR YELLOW; URINE GLUCOSE-RANDOM NEGATIVE (Negative); URINE KETONES NEGATIVE (Negative); URINE LEUKOCYTES-REFLEX 1+ (Negative); URINE NITRITE-REFLEX NEGATIVE (Negative); URINE PROTEIN NEGATIVE (Negative); URINE SPECIFIC GRAVITY <= 1.005 (1.005-1.030); URINE UROBILINOGEN 0.2 E.U./dl (0.2-1.0)
[2021-07-01 07:37] LABS: BACTERIA-REFLEX None Seen /HPF (None Seen); CASTS None Seen /LPF (None Seen); CRYSTALS None Seen /LPF (None Seen); MUCUS None Seen strn/LPF (None Seen); SQUAMOUS 0-3 Few /LPF (0-3); URINE RBC 0-2 Rare /HPF (0-2); URINE WBC-REFLEX 0-5 Rare /HPF (0-5)
[2021-07-01 10:41] VITALS: BP 150/71
[2021-07-01 11:59] VITALS: BP 134/57
[2021-07-01 16:00] VITALS: BP 141/64
[2021-07-01 20:30] VITALS: BP 145/68
[2021-07-02 08:00] VITALS: BP 137/66
[2021-07-02 09:00] LABS: CALCIUM 8.5 mg/dL (8.5-10.1); CREATININE 0.7 mg/dL (0.6-1.3); MAGNESIUM 1.9 mg/dL (1.8-2.4); PHOSPHORUS* 3.6 mg/dL (2.5-4.9); POTASSIUM 3.5 mmol/L (3.5-5.1)
--- NOTE | 2021-07-02 09:47 | EKG ---
[place] [address] ELECTROCARDIOGRAM REPORT Name: YESENIA STOKES Room: [address] ADM IN [facility].#: [id number] Admission: 07/01/21 Attend Phys: Brandon Bhat Discharge: Date of : 40 Date of Service: 07/01/21 0257 Report #: [id number] THIS REPORT FOR: //name// [facility] ED Test Date: 2021-07-01 Test Time: 02:57:58 Pat Name: YESENIA STOKES Department: Room: [address] Gender: F Asset Protection Lead: [place] : 1940 Requested By: Brigitte Pride Order Number: [id number] MD: Bob Alonso Measurements Intervals [place] Rate: 79 P: 58 WA: 159 QRS: -31 QRSD: 135 T: 9 QT: 404 QTc: 464 Interpretive Statements Sinus rhythm IVCD, consider atypical RBBB Compared to ECG 12/31/2018 11:42:23 No significant changes Electronically Signed On 07-02-2021 9:47:16 CDT by Bob Alonso [email or web address] <ELECTRONICALLY SIGNED> By: Bob Alonso MD, [facility] 07/02/21 0947 0257 Bob Alonso MD, [facility] /EPI
[2021-07-02 19:22] VITALS: BP 136/67
[2021-07-03 07:45] VITALS: BP 156/77
[2021-07-03 16:00] VITALS: BP 127/74
[2021-07-03 19:40] VITALS: BP 130/61
[2021-07-04 08:00] VITALS: BP 115/68
[2021-07-04] MEDS ORDERED: CEFDINIR300 MG PO (09:48)
== END 2021-07-04 17:37 | DRG 690 ==
LOC: M.ERS 02:59 → M.TBA-ER 07:34 → M.2W 07:34 → M.3W 07-02 16:34
PROVIDERS: Personal Emergency Response Attendant; ADMIT Internal Medicine; ATTEND Internal Medicine
PROC: 0D758ZZ Dilation of Esophagus, Via Natural or Artificial Opening Endoscopic (ICD-10-PCS; principal; 2021-07-04)
DX: N39.0 Urinary tract infection, site not specified (principal); Z96.653 Presence of artificial knee joint, bilateral; E11.9 Type 2 diabetes mellitus without complications; R33.9 Retention of urine, unspecified; R13.10 Dysphagia, unspecified; M48.00 Spinal stenosis, site unspecified; H01.006 Unspecified blepharitis left eye, unspecified eyelid; K31.7 Polyp of stomach and duodenum; Z20.822 Contact with and (suspected) exposure to COVID-19; Z96.619 Presence of unspecified artificial shoulder joint; J45.909 Unspecified asthma, uncomplicated; Z90.710 Acquired absence of both cervix and uterus; Z90.722 Acquired absence of ovaries, bilateral; Z88.6 Allergy status to analgesic agent; Z88.0 Allergy status to penicillin; Z88.8 Allergy status to other drugs, medicaments and biological substances; Z83.3 Family history of diabetes mellitus; Z82.49 Family history of ischemic heart disease and other diseases of the circulatory system; Z80.1 Family history of malignant neoplasm of trachea, bronchus and lung; Z23 Encounter for immunization

== ENCOUNTER 2021-09-05 15:07 | Emergency (ER) | payer MEDICARE ==
[~2021-09-05] VITALS: Ht 170.2 cm; Wt 90.7 kg
[~2021-09-05 15:07] MED LIST changes: +CEFDINIR300 MG PO; +MELATONIN5 MG SUBLING; +ONDANSETRON ODT4 MG PO; +PRESERVISION A1 EAC2 PO; +SERTRALINE HCL100 MG PO; +VITAMIN C500 M2 PO
[2021-09-05] MEDS ORDERED: B-125000 MC1 SUBLING (15:12)
[2021-09-05] MEDS ORDERED: QUESTRAN PACKET4 GM PO (15:13)
[2021-09-05] MEDS ORDERED: FLOMAX0.4 MG PO (15:14)
[2021-09-05] MEDS ORDERED: FAMOTIDINE 20 M20 MG PO (15:14)
[2021-09-05] MEDS ORDERED: PRESERVISION A1 EACH PO (15:16)
[2021-09-05] MEDS ORDERED: BASE B,POLYETHYL1 GM (15:16)
[2021-09-05] MEDS ORDERED: PROBIOTIC250 MG PO (15:17)
[2021-09-05 17:12] LABS: ABSOLUTE BASOPHILS 0.1 thou/uL (0.0-0.2); ABSOLUTE EOSINOPHILS 0.2 thou/uL (0.0-0.7); ABSOLUTE LYMPHOCYTES 1.2 thou/uL (0.8-5.3); ABSOLUTE MONOCYTES 0.8 thou/uL (0.0-1.2); ABSOLUTE NEUTROPHILS 8.9 thou/uL (1.6-8.1); BASOPHILS 0.5 %; EOSINOPHILS 1.8 %; HEMOGLOBIN 13.2 gm/dL (12.0-15.0); LYMPHOCYTES 10.8 %; MCH 29.8 pg (26.0-34.0); MCHC 32.9 g/dL (28.0-37.0); MCV 90.4 fL (80.0-100.0); MONOCYTES 7.3 %; MPV 6.6 fl. (7.2-11.1); NUCLEATED RBCS 0 /100WBC; PLATELET COUNT* 318 thou/uL (150-400); POLYS 79.6 %; RBC 4.43 mil/uL (4.20-5.00); RDW-CV 13.5 % (10.5-14.5); WBC 11.2 thou/uL (4.0-11.0)
[2021-09-05 17:21] LABS: CREATININE 0.8 mg/dL (0.6-1.3); POTASSIUM 4.2 mmol/L (3.5-5.1)
[2021-09-05 17:38] LABS: ALBUMIN 3.3 g/dL (3.4-5.0); TOTAL BILIRUBIN 0.2 mg/dL (<0.1-1.0)
[2021-09-05 19:07] LABS: URINE BLOOD NEGATIVE (Negative); URINE CLARITY CLEAR; URINE COLOR YELLOW; URINE GLUCOSE-RANDOM NEGATIVE (Negative); URINE KETONES NEGATIVE (Negative); URINE LEUKOCYTES-REFLEX NEGATIVE (Negative); URINE NITRITE-REFLEX NEGATIVE (Negative); URINE PROTEIN TRACE (Negative)
[2021-09-05 19:09] LABS: ICTOTEST (BILI CONFIRMATORY) Negative (Negative); URINE BILIRUBIN 1+ (Negative)
[2021-09-05 19:16] LABS: AMP/METHAMP Negative (Negative); BARBITURATES Negative (Negative); BENZODIAZEPINES Negative (Negative); COCAINE Negative (Negative); METHADONE Negative (Negative); OPIATES Negative (Negative); PCP Negative (Negative); THC POSITIVE (Negative)
[2021-09-05] MEDS ORDERED: METRONIDAZOLE500 M4 PO (19:18)
[2021-09-05] MEDS ORDERED: CIPRO500 M1 PO (19:18)
[2021-09-05 19:45] VITALS: BP 165/89
--- NOTE | 2021-09-06 15:19 | EKG ---
[place] [address] ELECTROCARDIOGRAM REPORT Name: YESENIA STOKES Room: [facility]#: [id number] Admission: 09/05/21 Attend Phys: Discharge: 09/05/21 Date of : 40 Date of Service: 09/05/21 1525 Report #: [id number] THIS REPORT FOR: //name// [facility] ED Test Date: 2021-09-05 Test Time: 15:25:52 Pat Name: YESENIA STOKES Department: Room: Gender: F Screening Representative: : 1940 Requested By: Mary Luong Order Number: [id number] MD: Myles Hills Measurements Intervals [place] Rate: 75 P: 44 ND: 172 QRS: -52 QRSD: 137 T: 24 QT: 422 QTc: 472 Interpretive Statements Sinus rhythm IVCD, consider atypical RBBB Delayed R wave progression, consider anterior infarct Compared to ECG 07/01/2021 02:57:58 Myocardial infarct finding now present Electronically Signed On 09-06-2021 15:19:25 MICE RAISER by Myles Hills [email or web address] <ELECTRONICALLY SIGNED> By: Myles Hills MD, FACC 09/06/21 1519 1525 1525 Myles Hills MD, FACC /EPI
== END 2021-09-05 21:38 ==
LOC: M.ERS 15:07
PROVIDERS: Physician Assistant
DX: K52.9 Noninfective gastroenteritis and colitis, unspecified (principal); R55 Syncope and collapse; R10.32 Left lower quadrant pain; J45.909 Unspecified asthma, uncomplicated; E11.9 Type 2 diabetes mellitus without complications; Z88.0 Allergy status to penicillin; Z88.8 Allergy status to other drugs, medicaments and biological substances; Z79.899 Other long term (current) drug therapy; Z90.710 Acquired absence of both cervix and uterus